=== PATIENT | female | born 1980 | race Caucasian/White ===

== ENCOUNTER 2021-01-02 16:40 | Emergency (ER) | payer MEDICAID, OTHER ==
[~2021-01-02] VITALS: Ht 170.2 cm; Wt 77.1 kg
[2021-01-02 16:52] VITALS: BP 118/79
[2021-01-02] MEDS ORDERED: SODIUM CHLORIDE 0.9% 1,000 ML IVB ONE ×2 (17:45→18:00)
[2021-01-02 17:51] LABS: Urine WBC None Seen /hpf (0 - 5)
[2021-01-02 18:10] LABS: Amphetamine Screen, Urine NEGATIVE (NEGATIVE); Barbiturate Scree,Urine NEGATIVE (NEGATIVE); Benzodiazephine Screen, Urine NEGATIVE (NEGATIVE); Cannabinoid Screen, Urine NEGATIVE (NEGATIVE); Cocaine Screen, Urine NEGATIVE (NEGATIVE); Opiate Scree,Urine NEGATIVE (NEGATIVE)
[2021-01-02 18:18] LABS: Phencyclidine Screen, Urine NEGATIVE (NEGATIVE)
[2021-01-02 18:35] LABS: Urine Bacteria FEW /hpf (None Seen); Urine Blood Negative /uL (Negative); Urine Specific Gravity 1.005 (1.001-1.035)
[2021-01-02 18:38] LABS: Basophils # (auto) 0.1 10 ^3/uL (0-0.2); Basophils % (auto) 1.2 % (0.0-2.0); Eosinophils # (auto) 0.1 10 ^3/uL (0-0.8); Monocytes # (auto) 0.3 10 ^3/uL (0-1.3); White Blood Cell 7.3 10^3/uL (4.4-10.8)
[2021-01-02 18:40] LABS: Eosinophils % (auto) 1.8 % (0.0-7.0); Hematocrit 39.9 % (36.0-46.0); Lymphocytes # (auto) 1.7 10 ^3/uL (0.4-5.4); Lymphocytes % (auto) 23.4 % (10.0-50.0); Mean Corpuscular Hemoglobin 34.8 pg (28.0-32.0); Mean Corpuscular Volume 99.4 fL (80.0-100.0); Monocytes % (auto) 4.1 % (0.0-12.0); Neutrophils # (auto) 5.1 10 ^3/uL (1.6-8.6); Neutrophils % (auto) 69.5 % (37.0-80.0); Platelet Count (auto) 282 10^3/uL (140-450); Red Blood Cells 4.01 10^6/uL (4.0-5.20); Red Cell Distribution Width 13.4 % (11.8-14.3)
[2021-01-02 18:44] LABS: Albumin 3.5 g/dL (3.4-5.0); Calcium 8.1 mg/dL (8.5-10.1); Potassium 4.1 mmol/L (3.5-5.1)
[2021-01-02] MEDS ORDERED: ACETAMINOPHEN 325 MG TAB PO ONE (18:45)
[2021-01-02 18:46] LABS: Salicylate 1.9 mg/dL (2.8-20.0)
[2021-01-02 18:47] LABS: Bilirubin, Total 0.1 mg/dL (0.2-1.0); Total Protein 7.5 g/dL (6.4-8.2)
[2021-01-02 18:49] LABS: Magnesium 2.2 mg/dL (1.6-2.6)
[2021-01-02 18:53] LABS: Acetaminophen < 2.0 ug/mL (10-30)
[2021-01-02] MEDS ORDERED: THIAMINE 100mg/ml INJ (200mg/2ml VIAL) IV ONE (19:00)
[2021-01-02] MEDS ORDERED: LIDOCAINE W/ EPINEPHRINE 2% INJ 20ML VIAL IJ ONE (21:00)
[2021-01-03] MEDS ORDERED: FOLIC ACID 1 MG, MULTIPLE VITAMIN 10 ML, MAGNESIUM SULF SDV 50% 8 MEQ, THIAMINE INJ 100... INJ SCH ×5 (12:00)
== END 2021-01-02 22:43 | disposition home or self-care (01) ==
LOC: EDBD 16:40 → ER 16:40
DX: S01.01XA Laceration without foreign body of scalp, initial encounter (principal); F10.129 Alcohol abuse with intoxication, unspecified; W18.39XA Other fall on same level, initial encounter; Y93.89 Activity, other specified; Y92.89 Other specified places as the place of occurrence of the external cause; Y99.8 Other external cause status; Y90.8 Blood alcohol level of 240 mg/100 ml or more
CPT/HCPCS: 12002; 36415; 70450; 71045; 80053; 80156; 80307; 80320; 80329; 81001; 83735; 85025; 96361; 96374; 99285; J3411; J7030